=== PATIENT | male | born 1945 | race Caucasian/White ===

== ENCOUNTER → 2021-05-30 | Day surgery (SDC) | payer MEDICARE, OTHER ==
[~2021-05-30] VITALS: Ht 172.7 cm; Wt 70.3 kg
[~2021-05-30] MED LIST: ASCORBIC ACID500 MG PO; ASPIRIN EC81 MG PO; LOVAZA1 GM PO; MULTI-VITAMIN1 EACH PO; ZINC PO
[2021-05-30 09:27] LABS: HCT 41.5 % (42.0-52.0); HGB 13.7 g/dl (13.2-18.0); MCH 30.6 pg (25.0-31.0); MCV 92.8 fL (78.0-100.0); MPV 10.4 fL (6.0-9.5); RBC 4.47 M/uL (4.70-6.00); RDW 12.9 % (11.5-14.0); WBC 5.7 K/uL (4.0-10.5)
[2021-05-30 09:46] LABS: ALBUMIN 4.1 g/dL (3.4-5.0); BILIRUBIN - TOTAL 0.6 mg/dL (0.2-1.0); BUN/CREAT RATIO (CALC) 21.3 RATIO; CREATININE 0.89 mg/dL (0.67-1.17); GLOBULIN (CALCULATION) 3.8 g/dL; POTASSIUM 3.9 mmol/L (3.5-5.1); TOTAL PROTEIN 7.9 g/dL (6.4-8.2)
== END | disposition home or self-care (01) ==
LOC: FAS 05-27 08:00
PROVIDERS: Surgery
DX: Z12.11 Encounter for screening for malignant neoplasm of colon (principal); Z87.891 Personal history of nicotine dependence; Z90.79 Acquired absence of other genital organ(s)
CPT/HCPCS: 36415; 80053; J2704; J7120